=== PATIENT | female | born 1995 | race Caucasian/White ===

== ENCOUNTER 2017-11-09 12:03 | Emergency (ER) | payer MEDICAID ==
[2017-11-09 12:03] VITALS: BMI 22.5
[2017-11-09 12:12] VITALS: RESP 18; TEMP 98.2
[2017-11-09] MEDS ORDERED: Sodium Chloride 0.9% 1,000 ML IV STA (12:30)
--- NOTE | 2017-11-09 12:37 | ED PDOC ---
HPI: Headache Time Seen by Provider: 11/09/17 12:19 Chief Complaint (Nursing): Headache Chief Complaint (Provider): Headache History Per: Patient Onset/Duration Of Symptoms: Persistent (x years), Worse Since (x2-3 days) Current Symptoms Are (Timing): Still Present Additional Complaint(s): 22 year old female arrives to ED with a complaint of left-sided headache, which is atypical from her chronic headaches, for the last 2-3 days. She reports associated neck pain and tingling sensation of her left shoulder and elbow. Patient denies any nausea, vomiting, or visual changes. She usually takes Naproxen for pain relief but did not take any medication today. PMD: Dr. Syed Blanco Past Medical History Reviewed: Historical Data, Nursing Documentation, Vital Signs Vital Signs: Last Vital Signs Temp 98.2 F 11/09/17 12:08 Pulse 105 H 11/09/17 12:08 Resp 18 11/09/17 12:08 BP 133/65 11/09/17 12:08 Pulse Ox 100 11/09/17 12:08 - Family History Family History: States: Unknown Family Hx - Immunization History Hx Tetanus Toxoid Vaccination: No Hx Influenza Vaccination: No Hx Pneumococcal Vaccination: No - Home Medications Home Medications: Ambulatory Orders Medication Instructions Recorded Clindamycin [Cleocin] 300 mg PO Q6 #28 cap 05/09/15 traMADol [Ultram] 50 mg PO TID #7 tab 05/09/15 Aspirin/Acetaminophen/Caffeine 2 each PO DAILY PRN #4 tablet 11/09/17 [Excedrin Migraine Caplet] - Allergies Allergies/Adverse Reactions: Allergies Allergy/AdvReac Type Severity Reaction Status Date / Time No Known Allergies Allergy Verified 05/11/15 18:30 Review of Systems ROS Statement: Except As Marked, All Systems Reviewed And Found Negative Eyes: Negative for: Vision Change Gastrointestinal: Negative for: Nausea, Vomiting Musculoskeletal: Positive for: Neck Pain Neurological: Positive for: Headache, Other (left shoulder and elbow tingling sensation) Physical Exam - Reviewed Nursing Documentation Reviewed: Yes Vital Signs Reviewed: Yes - Physical Exam Appears: Positive for: Non-toxic, No Acute Distress Head Exam: Positive for: ATRAUMATIC, NORMAL INSPECTION, NORMOCEPHALIC Eye Exam: Positive for: Normal appearance, EOMI, PERRL Cardiovascular/Chest: Positive for: Regular Rate, Rhythm Respiratory: Positive for: Normal Breath Sounds. 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 Negative for: Motor/Sensory Deficits, Aphasia - Laboratory Results Result Diagrams: 11/09/17 13:57 11/09/17 13:57 Urine POC: Negative - ECG ECG: Positive for: Viewed By Me ECG Rhythm: Positive for: Normal QRS, Sinus Rhythm O2 Sat by Pulse Oximetry: 100 (RA) Pulse Ox Interpretation: Normal Medical Decision Making Medical Decision Making: Initial Impression: Headache Initial Plan: * CT c-spine with contrast * CT head without contrast * EKG * Labs * IV fluids * Reglan 10mg IV * Toradol 15mg IVP Time: 1253 --CT head FINDINGS: HEMORRHAGE: No intracranial hemorrhage. BRAIN: No mass effect or edema. No atrophy or chronic microvascular ischemic changes. VENTRICLES: Unremarkable. No hydrocephalus. CALVARIUM: Unremarkable. PARANASAL SINUSES: Mild right ethmoid air cell opacification. MASTOID AIR CELLS: Unremarkable as visualized. No inflammatory changes. OTHER FINDINGS: None. IMPRESSION: No acute intracranial pathology. Time: 1307 --CT c-spine FINDINGS: VERTEBRAE: No fracture. Normal alignment. No destructive bony lesion. DISCS/SPINAL CANAL/NEURAL FORAMINA: No significant central canal or neural foraminal stenosis. Discs heights are grossly preserved. PARASPINAL SOFT TISSUES: Unremarkable. OTHER FINDINGS: Heterogeneous thyroid. IMPRESSION: Unremarkable CT of the cervical spine. Heterogeneous thyroid for which nonemergent outpatient thyroid ultrasound can be obtained for further evaluation. Time: 1410 --Labs reviewed: no significant clinical abnormality. Pt reports feeling better on re-evaluation. Scribe Attestation: Documented by Sugey Clark, acting as a scribe for Freda Caldera PA-C. Provider Scribe Attestation: All medical record entries made by the Scribe were at my direction and personally dictated by me. I have reviewed the chart and agree that the record accurately reflects my personal performance of the history, physical exam, medical decision making, and the department course for this patient. I have also personally directed, reviewed, and agree with the discharge instructions and disposition. Disposition - Clinical Impression Clinical Impression: Migraine - Patient ED Disposition Is Patient to be Admitted: No Counseled Patient/Family Regarding: Diagnosis, Need For Followup, Rx Given - Disposition Referrals: Garcia Carrera MD [Staff Provider] - Disposition: Routine/Home Disposition Time: 14:55 Condition: GOOD Prescriptions: Aspirin/Acetaminophen/Caffeine [Excedrin Migraine Caplet] 2 each PO DAILY PRN # 4 tablet PRN Reason: Migraine Headache Instructions: Migraine Headache (DC) Forms: [facility] (Libyan) Print Language: HONDURAN
--- NOTE | 2017-11-09 12:54 | CT ---
Date of service: 11/09/2017 PROCEDURE: CT HEAD WITHOUT CONTRAST. HISTORY: left sided headache, tingling in left arm COMPARISON: None available. TECHNIQUE: Axial computed tomography images were obtained through the head/brain without intravenous contrast. Radiation dose: Total exam DLP = 870.4 mGy-cm. This CT exam was performed using one or more of the following dose reduction techniques: Automated exposure control, adjustment of the mA and/or kV according to patient size, and/or use of iterative reconstruction technique. FINDINGS: HEMORRHAGE: No intracranial hemorrhage. BRAIN: No mass effect or edema. No atrophy or chronic microvascular ischemic changes. VENTRICLES: Unremarkable. No hydrocephalus. CALVARIUM: Unremarkable. PARANASAL SINUSES: Mild right ethmoid air cell opacification. MASTOID AIR CELLS: Unremarkable as visualized. No inflammatory changes. OTHER FINDINGS: None. IMPRESSION: No acute intracranial pathology.
--- NOTE | 2017-11-09 13:09 | CT ---
Date of service: 11/09/2017 PROCEDURE: CT Cervical Spine without contrast HISTORY: neck pain, left arm tingling COMPARISON: None available. TECHNIQUE: Axial computed tomography images were obtained of the cervical spine without the use of intravenous contrast. Coronal and sagittal reformatted images were created and reviewed. Radiation dose: Total exam DLP = 277.7 mGy-cm. This CT exam was performed using one or more of the following dose reduction techniques: Automated exposure control, adjustment of the mA and/or kV according to patient size, and/or use of iterative reconstruction technique. FINDINGS: VERTEBRAE: No fracture. Normal alignment. No destructive bony lesion. DISCS/SPINAL CANAL/NEURAL FORAMINA: No significant central canal or neural foraminal stenosis. Discs heights are grossly preserved. PARASPINAL SOFT TISSUES: Unremarkable. OTHER FINDINGS: Heterogeneous thyroid. IMPRESSION: Unremarkable CT of the cervical spine. Heterogeneous thyroid for which nonemergent outpatient thyroid ultrasound can be obtained for further evaluation.
[2017-11-09 14:07] LABS: BASO % 0.4 % (0.0-2.0); EOS # 0.1 K/uL (0.0-0.7); EOS % 1.7 % (0.0-4.0); HEMOGLOBIN 13.3 g/dL (12.0-16.0); LYMPH # 1.8 K/uL (1.0-4.3); LYMPH % 31.8 % (20.0-40.0); MEAN CELL VOLUME 90.4 fl (81.0-99.0); MEAN CORPUSCULAR HGB CONC 33.2 g/dL (33.0-37.0); MEAN PLATELET VOLUME 9.1 fl (7.2-11.7); MONO # 0.4 K/uL (0.0-0.8); MONO % 6.6 % (0.0-10.0); NEUT # 3.4 K/uL (1.8-7.0); NEUT % 59.5 % (50.0-75.0); NRBC % 0.1 % (0.0-0.0); RBC 4.44 Mil/uL (3.80-5.20); RED CELL DISTRIBUTION WIDTH 12.9 % (11.5-14.5); WHITE BLOOD COUNT 5.6 K/uL (4.8-10.8)
[2017-11-09 14:20] LABS: ALB/GLOB RATIO 1.1 (1.0-2.1); ALBUMIN 3.9 g/dL (3.5-5.0); ALT/SGPT 22 U/L (9-52); AST/SGOT 24 U/L (14-36); BLOOD UREA NITROGEN 11 mg/dl (7-17); CALCIUM 8.9 mg/dL (8.4-10.2); GFR NON-AFRICAN AMERICAN > 60
[2017-11-09 16:40] VITALS: BP 130/78; PULSE 70; O2SAT 99
--- NOTE | 2017-11-09 22:38 | CARD ---
APPROVED REPORT Date of service: 11/09/2017 EKG Measurement Heart [id number] <Conclusion> Sinus rhythm with marked sinus arrhythmia Otherwise normal ECG
== END 2017-11-09 16:43 | disposition home or self-care (01) ==
LOC: H.ER 12:03
DX: G43.909 Migraine, unspecified, not intractable, without status migrainosus (principal)
CPT/HCPCS: 70450; 72125; 80053; 81025; 85025; 93005; 96374; 99284; J1885; J2765; J7030

== ENCOUNTER 2018-05-27 09:12 | Emergency (ER) | payer MEDICAID ==
[2018-05-27 09:31] VITALS: BMI 26.6
--- NOTE | 2018-05-27 10:18 | ED PDOC ---
History of Present Illness History of Present Illness: 22yo female, otherwise well, comes to ER reporting cough, congestion, rhinorrhea and fever x 3 days. She reports t-max of 102 at home, and states she last took Motrin at midnight with some relief. She additionally reports bilateral ear pain, as well as pain to her right TMJ area for the past 4 months. No complaints of chest pain, shortness of breath or abdominal pain. PMD: Dr. Blanco HPI: Influenza Time Seen by Provider: 05/27/18 09:28 Chief Complaint: Headache Chief Complaint (Provider): Cough, congestion History Per: Patient Exam Limitations: no limitations Have you had recent travel within the past 21 days to any of: No Onset/Duration Of Symptoms: Days (3), Persistent Symptoms include: fever, cough, nasal congestion. denies: chest pain Past Medical History Reviewed: Historical Data, Nursing Documentation, Vital Signs - Medical History PMH: No Chronic Diseases - Surgical History Surgical History: No Surg Hx - Family History Family History: States: Unknown Family Hx - Immunization History Hx Tetanus Toxoid Vaccination: No Hx Influenza Vaccination: No Hx Pneumococcal Vaccination: No - Home Medications Home Medications: Ambulatory Orders Medication Instructions Recorded Clindamycin [Cleocin] 300 mg PO Q6 #28 cap 05/09/15 traMADol [Ultram] 50 mg PO TID #7 tab 05/09/15 Aspirin/Acetaminophen/Caffeine 2 each PO DAILY PRN #4 tablet 11/09/17 [Excedrin Migraine Caplet] Loratadine/Pseudoephedrine 1 each PO DAILY PRN #7 tab.er.24h 05/27/18 [Claritin-D 24 Hour Tablet] - Allergies Allergies/Adverse Reactions: Allergies Allergy/AdvReac Type Severity Reaction Status Date / Time No Known Allergies Allergy Verified 05/11/15 18:30 Review of Systems ROS Statement: Except As Marked, All Systems Reviewed And Found Negative Constitutional: Positive for: Fever ENT: Positive for: Ear Pain, Nose Discharge, Nose Congestion Cardiovascular: Negative for: Chest Pain Respiratory: Positive for: Cough. Negative for: Shortness of Breath Physical Exam - Reviewed Nursing Documentation Reviewed: Yes Vital Signs Reviewed: Yes - Physical Exam Appears: Positive for: Non-toxic, No Acute Distress Head Exam: Positive for: ATRAUMATIC, NORMAL INSPECTION, NORMOCEPHALIC Skin: Positive for: Normal Color Eye Exam: Positive for: EOMI, PERRL ENT: Positive for: TM Is/Are (clear bilaterally; no erythema), Nasal Congestion. Negative for: Pharyngeal Erythema, Tonsillar Exudate, Tonsillar Swelling Neck: Positive for: Normal, Painless ROM, Supple Cardiovascular/Chest: Positive for: Regular Rate, Rhythm. Negative for: Tachycardia Respiratory: Positive for: Normal Breath Sounds. Negative for: Wheezing, Respiratory Distress Gastrointestinal/Abdominal: Positive for: Normal Exam, Soft. Negative for: Tenderness Back: Positive for: Normal Inspection Extremity: Positive for: Normal ROM Neurological/Psych: Positive for: Awake, Alert Medical Decision Making Medical Decision Making: Impression: 22yo with cough, congestion x 3 days Plan: -- UDip Tamiflu not given as patient is outside the window for treatment; patient informed on symptomatic care, instructed to take Motrin/Tylenol alternately, and informed to stay well hydrated. 1126 Prior to discharge, patient states she is concerned as she has headaches and left arm discomfort. CT Head w/o contrast, EKG ordered. EKG: NSR @ 74, no ST-T changes. Accession No. : [id number] Patient Name / ID : FERNANDO JOSÉ / [id number] Exam Date : 05/27/2018 11:54:33 ( Approved ) Study Comment : Sex / Age : F / 22Y Creator : Raleigh Mak MD Dictator : Raleigh Mak MD Diagrammer : Emts : Raleigh Mak MD Approver2 : Report Date : 05/27/2018 13:18:24 My Comment : Date of service: 05/27/2018 PROCEDURE: CT HEAD WITHOUT CONTRAST. HISTORY: SHORT COMPARISON: Noncontrast head CT 11/09/2017. TECHNIQUE: Axial computed tomography images were obtained through the head/brain without intravenous contrast. Radiation dose: Total exam DLP = 828.41 mGy-cm. This CT exam was performed using one or more of the following dose reduction techniques: Automated exposure control, adjustment of the mA and/or kV according to patient size, and/or use of iterative reconstruction technique. FINDINGS: HEMORRHAGE: No intracranial hemorrhage. BRAIN: Normal horner-white matter differentiation and density are appreciated once again throughout the cerebrum and cerebellum with the brainstem appearing unremarkable as well. There is no mass effect. There is no suspicious extra-axial fluid collection and the midline brain anatomy appears diffusely unremarkable. VENTRICLES: Unremarkable. No hydrocephalus. CALVARIUM: Unremarkable. PARANASAL SINUSES: Unremarkable as visualized. No significant inflammatory changes. MASTOID AIR CELLS: Unremarkable as visualized. No inflammatory changes. OTHER FINDINGS: None. IMPRESSION: Unremarkable unenhanced head CT. No significant interval change from prior CT 11/01/2017. Scribe Attestation: Documented by Susana Vu acting as a scribe for Malia Jones MD. Provider Scribe Attestation: All medical record entries made by the Scribe were at my direction and personally dictated by me. I have reviewed the chart and agree that the record accurately reflects my personal performance of the history, physical exam, medical decision making, and the department course for this patient. I have also personally directed, reviewed, and agree with the discharge instructions and disposition. Disposition - Clinical Impression Clinical Impression: URI (upper respiratory infection) - Disposition Disposition: Routine/Home Disposition Time: 10:32 Condition: STABLE Additional Instructions: FOLLOW-UP WITH PMD WITHIN 2 DAYS FOR REEVALUATION. Prescriptions: Loratadine/Pseudoephedrine [Claritin-D 24 Hour Tablet] 1 each PO DAILY PRN #7 tab.er.24h PRN Reason: Allergy Symptoms Instructions: Cough, Runny Nose, and the Common Cold Forms: [facility] (Algerian)
[2018-05-27 10:19] VITALS: RESP 19; O2SAT 98
[2018-05-27 12:44] VITALS: PULSE 78
--- NOTE | 2018-05-27 13:24 | CT ---
Date of service: 05/27/2018 PROCEDURE: CT HEAD WITHOUT CONTRAST. HISTORY: SHORT COMPARISON: Noncontrast head CT 11/09/2017. TECHNIQUE: Axial computed tomography images were obtained through the head/brain without intravenous contrast. Radiation dose: Total exam DLP = 828.41 mGy-cm. This CT exam was performed using one or more of the following dose reduction techniques: Automated exposure control, adjustment of the mA and/or kV according to patient size, and/or use of iterative reconstruction technique. FINDINGS: HEMORRHAGE: No intracranial hemorrhage. BRAIN: Normal horner-white matter differentiation and density are appreciated once again throughout the cerebrum and cerebellum with the brainstem appearing unremarkable as well. There is no mass effect. There is no suspicious extra-axial fluid collection and the midline brain anatomy appears diffusely unremarkable. VENTRICLES: Unremarkable. No hydrocephalus. CALVARIUM: Unremarkable. PARANASAL SINUSES: Unremarkable as visualized. No significant inflammatory changes. MASTOID AIR CELLS: Unremarkable as visualized. No inflammatory changes. OTHER FINDINGS: None. IMPRESSION: Unremarkable unenhanced head CT. No significant interval change from prior CT 11/01/2017.
[2018-05-27 14:07] VITALS: BP 107/78; TEMP 97.7
--- NOTE | 2018-05-27 19:19 | CARD ---
APPROVED REPORT Date of service: 05/27/2018 EKG Measurement Heart [id number] <Conclusion> Normal sinus rhythm with sinus arrhythmia Septal infarct, age undetermined Abnormal ECG
== END 2018-05-27 14:07 | disposition home or self-care (01) ==
LOC: H.ER 09:12
DX: J06.9 Acute upper respiratory infection, unspecified (principal)